=== PATIENT | female | born 1990 | race Caucasian/White ===

== ENCOUNTER 2020-04-21 19:34 | Emergency (ER) | payer OTHER ==
[2020-04-21 19:48] VITALS: BP 122/78; PULSE 91; TEMP 98.5; BMI 24.1
[2020-04-21 20:34] LABS: EPI CELLS 24 /uL (0-25.1); HYALINE CASTS 0 /uL (0-3.1); PH,URINE 7.5 (5.0-8.0); URINE APPEARANCE CLOUDY; URINE BACTERIA 280 /uL (0-1359); URINE BILIRUBIN NEGATIVE (NEGATIVE); URINE COLOR YELLOW; URINE GLUCOSE (UA) NEGATIVE (NEGATIVE); URINE KETONE NEGATIVE (NEGATIVE); URINE LEUK ESTERASE TRACE (NEGATIVE); URINE NITRITE NEGATIVE (NEGATIVE); URINE PROTEIN NEGATIVE (NEGATIVE); URINE RBC 3 /uL (0-23.9); URINE UROBILINOGEN 0.2 mg/dL (0.2-1.0); URINE WBC 11 /uL (0-25.8)
[2020-04-21] MEDS ORDERED: ACETAMINOPHEN 1000 MG/100 ML VIAL (NON FORMULARY) IVPB ONE (20:54)
[2020-04-21 20:57] LABS: BASO % 0.7 % (0-2.0); HEMATOCRIT 36.7 % (32.4-45.2); HEMOGLOBIN 11.8 GM/dL (10.7-15.3); LYMPH % 26.1 % (8-40); MCH 26.1 pg (25.7-33.7); MCHC 32.2 g/dl (32.0-36.0); MEAN CELL VOLUME 81.2 fl (80-96); MEAN PLT VOLUME 9.6 fl (7.5-11.1); MONO % 7.7 % (3.8-10.2); NEUT % 63.5 % (42.8-82.8); PLATELET COUNT 199 K/MM3 (134-434); RBC 4.52 M/mm3 (3.60-5.2); RDW 13.6 % (11.6-15.6); WHITE BLOOD COUNT 9.2 K/mm3 (4.0-10.0)
[2020-04-21] MEDS ORDERED: SODIUM CHLORIDE 1,000 ML IV SCH (21:00)
[2020-04-21 21:09] LABS: INR 0.93 (0.83-1.09)
[2020-04-21 21:12] LABS: ACTIVATED PTT 25.9 SECONDS (25.2-36.5)
[2020-04-21 21:34] LABS: ALBUMIN 3.7 g/dl (3.4-5.0); ALK PHOS 86 U/L (45-117); ANION GAP 6 MMOL/L (8-16); BILIRUBIN,TOTAL 0.2 mg/dL (0.2-1); BLOOD UREA NITROGEN 16.4 mg/dL (7-18); CALCIUM 9.2 mg/dL (8.5-10.1); CHLORIDE 106 mmol/L (98-107); CO2 27 mmol/L (21-32); CREATININE 0.9 mg/dL (0.55-1.3); GLUCOSE,RANDOM 80 mg/dL (74-106); POTASSIUM 4.2 mmol/L (3.5-5.1); SGOT/AST 10 U/L (15-37); SGPT/ALT 19 U/L (13-61); SODIUM 138 mmol/L (136-145); TOT PROT 7.5 g/dl (6.4-8.2)
[2020-04-21] MEDS ORDERED: ACETAMINOPHEN INJECTION 100 ML IVPB ONE (21:34)
[2020-04-21] MEDS ORDERED: KETOROLAC TROMETHAMINE 30 MG/1 ML VIAL IVPUSH ONE (22:45)
[2020-04-21] MEDS ORDERED: KETOROLAC TROMETHAMINE 30 MG/1 ML VIAL ONE (23:11)
== END 2020-04-22 00:12 | disposition home or self-care (01) ==
LOC: JER 19:34
PROC: 3E033GC Introduction of Other Therapeutic Substance into Peripheral Vein, Percutaneous Approach (ICD-10-PCS; principal; 2020-04-21)
DX: N83.201 Unspecified ovarian cyst, right side (principal)
CPT/HCPCS: 36415; 76830-TC; 80053; 81003; 84702; 84703; 85025; 85610; 85730; 86850; 86900; 86901; 87077; 87086; 87491; 87591; 99284-25; J0131

== ENCOUNTER 2020-07-08 19:35 | Emergency (ER) | payer OTHER ==
[2020-07-08 19:42] VITALS: BMI 27.8
[2020-07-08] MEDS ORDERED: SODIUM CHLORIDE 0.9% 500 ML INFUS.BAG IV ONE (20:40)
--- NOTE | 2020-07-08 20:58 | PDOC ---
History of Present Illness <Jayesh Fofana - Last Filed: 07/08/20 22:27> - History of Present Illness Initial Comments: HPI Pt is a 29 yo F with no significant PMH presenting with R sided pelvic/lower abdominal pain + vaginal bleeding in the setting of being 1 month (LMP 06/04/2020; pt had 3 positive home urine tests. Pt reports that both the pain and bleeding started 3 hours before arrival in the ED. The pain is described as moderate to severe in severity, intermittent, non-radiating, and cramping; with associated mild lower back pain. The bleeding has been intermittent with 4-5 episodes of bleeding that soak through her clothes and with passage of small clots; denies passage of any tissue. Pt denies trauma to the area, dizziness/lightheadedness, fevers, chills, weakness, chest pain, SOB, urinary changes, nausea, vomiting, diarrhea, or constipation. Of note pt, had a TVUS done on 04/2020 that showed a 3.1 x 2.3 cm hemorrhagic right ovarian cyst. ObGyn Hx: Ob - pt is ; no past failed pregnancies; first was 9 years ago which was uncomplicated; Outcomes Specialist - hx of hemorrhagic R ovarian cyst (as above); no hx of polyps, fibroids or any other livestock inspector complaints Pt is not currently following with an ObGyn and endorses needing one. PMHX: as in HPI PSHX: as in HPI & ObGyn Hx Meds: none Allergies: nkda Tob: denies Etoh: denies current use Rec drugs: denies PCP: no current PCP; pt endorses needing one ROS GENERAL/CONSTITUTIONAL: No fever or chills. No weakness. HEAD, EYES, EARS, NOSE AND THROAT: No change in vision. No ear pain or discharge. No sore throat. CARDIOVASCULAR: No chest pain or shortness of breath RESPIRATORY: No cough, wheezing, or hemoptysis. GASTROINTESTINAL: No nausea, vomiting, diarrhea or constipation. GENITOURINARY: No dysuria, frequency, or change in urination. + vaginal bleeding, R lower abd/pelvic pain MUSCULOSKELETAL: No joint or muscle swelling or pain. No neck pain. SKIN: No rash NEUROLOGIC: No headache, vertigo, loss of consciousness, or change in strength/sensation. ENDOCRINE: No increased thirst. No abnormal weight change HEMATOLOGIC/LYMPHATIC: No anemia, easy bleeding, or history of blood clots. ALLERGIC/IMMUNOLOGIC: No hives or skin allergy. PE GENERAL: Awake, alert, and fully oriented, in no acute distress HEAD: No signs of trauma, normocephalic, atraumatic EYES: PERRLA, EOMI, sclera anicteric, conjunctiva clear ENT: Auricles normal inspection, hearing grossly normal, nares patent, oropharynx clear without exudates. Moist mucosa NECK: Normal ROM, supple, no lymphadenopathy, JVD, or masses LUNGS: No distress, speaks full sentences, clear to auscultation bilaterally HEART: Tachycardic and regular rhythm, normal S1 and S2, no murmurs, rubs or ga llops, peripheral pulses normal and equal bilaterally. ABDOMEN: Soft, nontender, normoactive bowel sounds. No guarding, no rebound. No masses PELVIC: bleeding from closed cervix visualized on speculum exam; moderate amount of blood in vaginal vault; no CMT; no adnexal tenderness (mild adnexal discomfort R>L) EXTREMITIES : Normal inspection, Normal range of motion, no edema. NEUROLOGICAL: Moving all extremities equally and spontaneously. Normal speech, normal gait, no focal sensorimotor deficits SKIN: Warm, Dry, normal turgor, no rashes or lesions noted. 07/08/20 22:07 07/08/20 23:41 <Rubio Liang - Last Filed: 07/08/20 23:45> - General Chief Complaint: Vaginal Bleeding Stated Complaint: 1 MONTH /VAGINAL BLEEDING Time Seen by Provider: 07/08/20 20:17 Past History <Jayesh Fofana - Last Filed: 07/08/20 22:27> - Medical History COPD: No - Reproductive History Is Patient Now?: Yes (#): 2 Para: 1 Therapeutic (s) & number: No Spontaneous : 0 - Psycho-Social/Smoking History Smoking History: Never smoked - Substance Abuse Hx (Audit-C & DAST Scrn) How often the patient has a drink containing alcohol: Never Score: In Men: 4 or > Positive; In Women: 3 or > Positive: 0 Screen Result (Pos requires Nsg. Audit-10AR): Negative <Rubio Liang - Last Filed: 07/08/20 23:45> - Medical History Allergies/Adverse Reactions: Allergies Allergy/AdvReac Type Severity Reaction Status Date / Time No Known Allergies Allergy Verified 07/08/20 19:39 *Physical Exam - Vital Signs Last Vital Signs Temp Pulse Resp BP Pulse Ox 97 F L 88 18 136/84 100 07/08/20 19:37 07/08/20 19:37 07/08/20 19:37 07/08/20 19:37 07/08/20 19:37 <Jayesh Fofana - Last Filed: 07/08/20 22:27> - Vital Signs Last Vital Signs Temp Pulse Resp BP Pulse Ox 97 F L 88 18 136/84 100 07/08/20 19:37 07/08/20 19:37 07/08/20 19:37 07/08/20 19:37 07/08/20 19:37 <Rubio Liang - Last Filed: 07/08/20 23:45> ED Treatment Course - LABORATORY CBC & Chemistry Diagram: 07/08/20 20:50 07/08/20 20:50 - ADDITIONAL ORDERS Additional order review: Laboratory Results 07/08/20 07/08/20 07/08/20 20:50 20:50 20:50 Sodium 138 Potassium 4.1 Chloride 104 Carbon Dioxide 29 Anion Gap 5 L BUN 13.7 Creatinine 0.8 Est GFR (CKD-EPI)AfAm 114.66 Est GFR (CKD-EPI)NonAf 98.93 Random Glucose 87 Calcium 9.5 Total Bilirubin 0.9 AST 16 ALT 21 Alkaline Phosphatase 93 Total Protein 7.8 Albumin 3.9 Beta HCG, Quant 22.2 Blood Type B POSITIVE Antibody Screen Negative 07/08/20 20:50 RBC 4.89 MCV 80.2 MCHC 32.8 RDW 13.6 MPV 9.7 Neutrophils % 63.5 Lymphocytes % 27.5 Monocytes % 6.7 Eosinophils % 1.8 Basophils % 0.5 - RADIOLOGY Radiology Studies Ordered: Category Date Time Status TRANSVAGINAL ULTRASOUND US [US] Stat Ultrasound 07/08/20 20:39 Ordered - Medications Given in the ED: ED Medications Discontinued Medications Generic Name Dose Route Start Last Admin Trade Name Freq PRN Reason Stop Dose Admin Sodium Chloride 1,000 ml 07/08/20 20:40 07/08/20 21:50 Normal Saline - IV 07/08/20 20:41 1,000 ml ONCE ONE Administration <Jayesh Fofana - Last Filed: 07/08/20 22:27> - LABORATORY CBC & Chemistry Diagram: 07/08/20 20:50 07/08/20 20:50 <Rubio Liang - Last Filed: 07/08/20 23:45> Medical Decision Making - Medical Decision Making MDM Pt is a 29 yo F with no significant PMH presenting with R sided pelvic/lower abdominal pain + vaginal bleeding in the setting of being 1 month (LMP 06/04/2020; pt had 3 positive home urine tests). Pelvic exam significant for bleeding from a closed cervical os. DDX including but not limited to: ectopic vs spontaneous vs inevitable vs threatened vs hemorrhagic ovarian cyst or other livestock inspector pathology W/U: -cbc, cmp, fly fishing guide & screen, B-hCG quantitative/qualitative -TVUS 07/08/20 22:14 B-hC.2 US:No IUP visualized. Within L adnexa, note is made of 1.6 x1.5 x 1.3 cm soft tissue structure containing a 1 cm area of fluid - ?possible ectopic . No free fluid visualized. Pt strictly instructed to return within 24-48 hours for follow up B-hCG level. Patient stable for discharge. Informed of all lab and imaging results. Given follow up instructions and strict return precautions. Patient expressed understanding and agree to plan Pt's phone number is [phone] Pt's fiance (Sim Parsons) phone number is [phone] Pt prefers if calls go to her fiance as he speaks Tanzanian and she is Peruvian- speaking. 07/08/20 23:39 <Rubio Liang - Last Filed: 07/08/20 23:45> Discharge <Jayesh Fofana - Last Filed: 07/08/20 22:27> - Discharge Information Problems reviewed: Yes - Admission No <Rubio Liang - Last Filed: 07/08/20 23:45> - Discharge Information Clinical Impression/Diagnosis: Vaginal bleeding, Early stage of Condition: Good Disposition: HOME - Follow up/Referral Referrals: [facility] [place] Internal Med at [place] [Provider Group] Stacey Carr MD [Staff Physician] - - Patient Discharge Instructions Patient Printed Discharge Instructions: DI for Vaginal Bleeding During Additional Instructions: You were seen in the ED for complaints of vaginal bleeding and right sided pelvic/lower abdominal pain in the setting of early . In the ED you were evaluated with pelvic exam, lab test, and ultrasound (transvaginal). Your results showed a quantitative B-hCG level of 22.2; rest of your labs were normal. There does not appear to be an acute need for immediate hospitalization. You are advised to follow up with your Primary Care Physician within 1 week. We have provided a referral for a PCP. You were given a referral to ObGyn. Please follow up within 1 week. It is very important for you to get another B-hCG level within the next 24-48 hours. Return to the ED immediately if you experience significantly increasing pain, significantly increased bleeding, develop a fever, or are advised to do so after follow up B-hCG level.
[2020-07-08 21:20] LABS: BASO % 0.5 % (0-2.0); EOS % 1.8 % (0-4.5); HEMATOCRIT 39.2 % (32.4-45.2); HEMOGLOBIN 12.9 GM/dL (10.7-15.3); LYMPH % 27.5 % (8-40); MCH 26.3 pg (25.7-33.7); MCHC 32.8 g/dl (32.0-36.0); MEAN CELL VOLUME 80.2 fl (80-96); MEAN PLT VOLUME 9.7 fl (7.5-11.1); MONO % 6.7 % (3.8-10.2); NEUT % 63.5 % (42.8-82.8); PLATELET COUNT 235 K/MM3 (134-434); RBC 4.89 M/mm3 (3.60-5.2); RDW 13.6 % (11.6-15.6); WHITE BLOOD COUNT 11.9 K/mm3 (4.0-10.0)
[2020-07-08] MEDS ORDERED: ACETAMINOPHEN 325 MG TABLET (FP) PO ONE (21:34)
[2020-07-08 21:53] LABS: ALBUMIN 3.9 g/dl (3.4-5.0); BILIRUBIN,TOTAL 0.9 mg/dL (0.2-1); BLOOD UREA NITROGEN 13.7 mg/dL (7-18); CALCIUM 9.5 mg/dL (8.5-10.1); CREATININE 0.8 mg/dL (0.55-1.3); POTASSIUM 4.1 mmol/L (3.5-5.1); TOT PROT 7.8 g/dl (6.4-8.2)
--- NOTE | 2020-07-08 22:25 | PDOC ---
Documentation entered by Petros Vega SCRIBE, acting as scribe for Cecilia Crawley MD. Cecilia Crawley MD: This documentation has been prepared by the scribe, Petros Vega SCRIBE, under my direction and personally reviewed by me in its entirety. I confirm that the documentation accurately reflects all work, treatment, procedures, and medical decision making performed by me. Attending Attestation - Resident Resident Name: Rubio Liang - ED Attending Attestation I have performed the following: I have examined & evaluated the patient, The case was reviewed & discussed with the resident, I agree w/resident's findings & plan, Exceptions are as noted - HPI HPI: 07/08/20 22:00 The patient is a 29 year old female with no significant past medical history who presents to the emergency department for evaluation of vaginal bleeding that began three hours ago. The patient reports bleeding has soaked her clothes and included small clots. She also endorses 10/10, intermittent, non- radiating right sided pelvic and lower abdominal pain and cramping that began three hours ago. The patient denies chest/back pain, cough, and shortness of breath. Denies fever, chills, nausea, vomiting, and/or any GI symptoms. Denies any other symptoms. Allergies: NKA, NKDA Surgical History: None reported Social History: None reported - Physicial Exam PE: 07/08/20 20:34 GENERAL: The patient is awake, alert, and fully oriented, Nontoxic - in no acute distress. HEAD: Normocephalic, atraumatic. EYES: extraocular movements intact, sclera anicteric, conjunctiva clear. ENT: Normal voice, Moist mucous membranes. NECK: Normal range of motion, supple without lymphadenopathy, JVD, or masses. LUNGS: Breath sounds equal, clear to auscultation bilaterally. No wheezes, no crackles, no rales. HEART: Regular rate and rhythm, normal S1 and S2 without murmur, rub or gallop. ABDOMEN: Soft, nontender, normoactive bowel sounds. No guarding, no rebound. No masses. EXTREMITIES: Normal range of motion, no edema. No clubbing or cyanosis. No cords, erythema, or tenderness. NEUROLOGICAL: No facial asymmetry, Normal speech, normal gait. PSYCH: Normal mood, normal affect. SKIN: Warm, Dry, normal turgor, no rashes or lesions noted. - Medical Decision Making 07/08/20 21:00 Pt will have labs and official sono; she has a B-POS blood type. 07/08/20 21:00 Vitals stable; not tachy and blood pressure is normal 07/08/20 21:57 Pt's labs are all normal Pt's BHCG is still pending 07/08/20 22:25 hcg is 22; pt will be discharged she will follow up in a few days for repeat Bhcg to follow it to zero. Discharge - Discharge Information Problems reviewed: Yes Clinical Impression/Diagnosis: Vaginal bleeding, Early stage of Condition: Good Disposition: HOME - Follow up/Referral Referrals: [facility] [place] Internal Med at [place] [Provider Group] Stacey Carr MD [Staff Physician] - - Patient Discharge Instructions Patient Printed Discharge Instructions: DI for Vaginal Bleeding During Additional Instructions: You were seen in the ED for complaints of vaginal bleeding and right sided pelvic/lower abdominal pain in the setting of early . In the ED you were evaluated with pelvic exam, lab test, and ultrasound (transvaginal). Your results showed a quantitative B-hCG level of 22.2; rest of your labs were normal. There does not appear to be an acute need for immediate hospitalization. You are advised to follow up with your Primary Care Physician within 1 week. We have provided a referral for a PCP. You were given a referral to ObGyn. Please follow up within 1 week. It is very important for you to get another B-hCG level within the next 24-48 hours. Return to the ED immediately if you experience significantly increasing pain, significantly increased bleeding, develop a fever, or are advised to do so after follow up B-hCG level. - Post Discharge Activity
[2020-07-08] MEDS ORDERED: ACETAMINOPHEN 325 MG TABLET (FP) ONE (22:27)
[2020-07-08 23:35] VITALS: BP 134/76; PULSE 90; TEMP 97.3
== END 2020-07-08 23:35 | disposition home or self-care (01) ==
LOC: JER 19:35
DX: O26.851 Spotting complicating pregnancy, first trimester (principal)
CPT/HCPCS: 36415; 76830-TC; 80053; 84702; 84703; 85025; 86850; 86900; 86901; 99284-25

== ENCOUNTER 2020-07-20 19:34 | Emergency (ER) | payer OTHER ==
[2020-07-20 19:53] VITALS: BP 111/66; PULSE 79; TEMP 97.8; BMI 27.4
--- OUTSIDE RECORDS SUMMARY | 2020-07-20 20:05 | XMS ---
:1990 Author Organization [facility] Support Name Relationship Address Phone UE, UNEMPLOYED Unavailable Unavailable Unavailable UE Unavailable Unavailable Unavailable [employer] [address] [place] [phone] Re-disclosure Warning The records that you are about to access may contain information from federally- assisted alcohol or drug abuse programs. If such information is present, then the following federally mandated warning applies: This information has been disclosed to you from records protected by federal confidentiality rules (42 CFR part 2). The federal rules prohibit you from making any further disclosure of this information unless further disclosure is expressly permitted by the written consent of the person to whom it pertains or as otherwise permitted by 42 CFR part 2. A general authorization for the release of medical or other information is NOT sufficient for this purpose. The Federal rules restrict any use of the information to criminally investigate or prosecute any alcohol or drug abuse patient.The records that you are about to access may contain highly sensitive health information, the redisclosure of which is protected by Article 27-F of the [facility] Public Health law. If you continue you may haveaccess to information: Regarding HIV / AIDS; Provided by facilities licensed or operated by the [facility] Office of Mental Health; or Provided by the [facility] Office for People With Developmental Disabilities. If such information is present, then the following [facility] mandated warning applies: This information has been disclosed to you from confidential records which are protected by state law. State law prohibits you from making any further disclosure of this information without the specific written consent of the person to whom it pertains, or as otherwise permitted by law. Any unauthorized further disclosure in violation of state law may result in a fine or senior living sentence or both. A general authorization for the release of medical or other information is NOT sufficient authorization for further disclosure. Insurance Providers Payer name Policy type Policy ID Covered Covered alliance party's Policy P mikey / Coverage alliance party ID relationship to Andre Inf ormation type andre [employer] [id number] SP [id number] HEALTH NON CAP MEDICAID [id number] SP [id number] SELF PAY SP INSURANCE
--- NOTE | 2020-07-20 22:02 | PDOC ---
History of Present Illness - General Chief Complaint: Revisit, Lab Variance Stated Complaint: FOLLOW UP Time Seen by Provider: 07/20/20 19:58 - History of Present Illness Initial Comments: 07/20/20 22:00 29-year-old female here for repeat beta on a beta that was 22 at her prior visit. She has no symptoms no cramping or discharge Past History - Medical History Allergies/Adverse Reactions: Allergies Allergy/AdvReac Type Severity Reaction Status Date / Time No Known Allergies Allergy Verified 07/08/20 19:39 COPD: No - Reproductive History Is Patient Now?: No (#): 2 Para: 1 Therapeutic (s) & number: No Spontaneous : 0 - Psycho-Social/Smoking History Smoking History: Never smoked - Substance Abuse Hx (Audit-C & DAST Scrn) How often the patient has a drink containing alcohol: Never Score: In Men: 4 or > Positive; In Women: 3 or > Positive: 0 Screen Result (Pos requires Nsg. Audit-10AR): Negative Review of Systems - Review of Systems : Yes: See HPI. No: Discharge *Physical Exam - Vital Signs Last Vital Signs Temp Pulse Resp BP Pulse Ox 97.8 F 79 20 111/66 100 07/20/20 19:43 07/20/20 19:43 07/20/20 19:43 07/20/20 19:43 07/20/20 19:43 - Physical Exam General Appearance: Yes: Nourished, Appropriately Dressed. No: Apparent Distress HEENT: positive: Symmetrical Neck: positive: Supple Respiratory/Chest: positive: Normal Breath Sounds. negative: Respiratory Distress ED Treatment Course - ADDITIONAL ORDERS Additional order review: Laboratory Results 07/20/20 20:30 Beta HCG, Quant < 1.0 Medical Decision Making - Medical Decision Making 07/20/20 22:00 Beta undetectable patient is not follow-up with STRE[facility]GR[facility] I have reviewed the pathophysiology with the patient. They are in agreement with the treatment plan all questions were answered to their satisfaction. Understanding for follow-up without fail was also conveyed to the patient. Again they are in agreement. Discharge - Discharge Information Problems reviewed: Yes Clinical Impression/Diagnosis: Not currently Condition: Stable Disposition: HOME - Admission No - Follow up/Referral Referrals: Judith Medrano MD [Staff Physician] - - Patient Discharge Instructions Additional Instructions: Return to the emergency room for further issues at any time. Your beta hCG test is negative indicating you are not . Without fail follow-up with your STRE[facility] PHOTOGRAPHER in 1 to 2 days for further evaluation and treatment options. Return to the emergency room for any reason if problems develop. - Post Discharge Activity
== END 2020-07-20 23:07 | disposition home or self-care (01) ==
LOC: JERFT 19:34
DX: Z09 Encounter for follow-up examination after completed treatment for conditions other than malignant neoplasm (principal)
CPT/HCPCS: 36415; 84702; 99283-25